=== PATIENT | male | born 1945 | race Hispanic/Latino ===

== ENCOUNTER → 2018-05-18 | Outpatient (CLI) | payer OTHER | END | disposition home or self-care (01) | LOC: RAH 13:55 | PROVIDERS: ATTEND Family Medicine | DX: R22.2 Localized swelling, mass and lump, trunk (principal) | CPT/HCPCS: 76882 ==

== ENCOUNTER → 2019-12-14 | Outpatient (CLI) | payer OTHER | END | disposition home or self-care (01) | LOC: OIH 10:36 | PROVIDERS: ATTEND Family Medicine | DX: M17.0 Bilateral primary osteoarthritis of knee (principal) | CPT/HCPCS: 73560 ==

== ENCOUNTER 2025-11-05 13:02 | Emergency (ER) | payer OTHER ==
[~2025-11-05] VITALS: Ht 170.2 cm; Wt 90.7 kg
[2025-11-05 13:25] LABS: IMMATURE GRANULOCYTE ABSOLUTE 0.02 K/uL (0-1); NUCLEATED RED BLOOD CELLS 0.0 % (0.0-0.19); PLATELET COUNT (AUTO) 179 K/uL (130-400); RED BLOOD CELL COUNT(AUTO) 4.89 MIL/uL (4.50-6.20); RED CELL DISTRIBUTION WIDTH 13.2 % (11.0-15.5); WHITE BLOOD COUNT (AUTO) 5.4 K/uL (4.8-10.8)
[2025-11-05 13:34] LABS: CREATININE 1.2 mg/dL (0.5-1.3); GLOMERULAR FILTR. RATE CALC 61.0 mL/min (>90); GLUCOSE,RANDOM 169.0 mg/dL (70-105); SODIUM SERUM 139.0 mmol/L (136-145); UREA NITROGEN, BLOOD 17.0 mg/dL (7-18)
[2025-11-05 14:19] LABS: APPEARANCE,URINE CLEAR (CLEAR); GLUCOSE, URINE (UA) NEGATIVE (NEGATIVE); LEUKOCYTE ESTERASE ,URINE NEGATIVE Leu/uL (NEGATIVE); NITRATE,URINE NEGATIVE (NEGATIVE); OCCULT BLOOD,URINE NEGATIVE (NEGATIVE)
[2025-11-05 14:27] LABS: ADD UA MICROSCOPIC YES
[2025-11-05 15:45] VITALS: BP 140/70; PULSE 69; RESP 19; TEMP 97.1; O2SAT 97
--- NOTE | 2025-11-05 16:08 | HMCIMG ---
EXAM: CT SCAN OF THE BRAIN WITHOUT CONTRAST CLINICAL HISTORY: Syncope. TECHNIQUE: Axial computed tomography images of the brain were obtained without administration of intravenous contrast. Sagittal and coronal reformatted images were generated for review. Radiation dose reduction was achieved using ALARA (as low as reasonably achievable) principles, including automatic exposure control, adjustment of mA and/or kV settings according to patient size and weight, and the use of iterative reconstruction techniques, as well as sagittal and coronal reconstructions when applicable. RADIATION DOSE: CTDIvol 49.30 mGy; DLP 960.40 mGycm. CONTRAST: No intravenous contrast administered. COMPARISON: None provided. FINDINGS: Brain parenchyma: Brain parenchyma demonstrates normal attenuation without evidence of acute intracranial hemorrhage, mass lesion, or territorial infarct. Bilateral basal ganglia calcifications are present. White matter: Focal hypodense areas in the bilateral periventricular and subcortical white matter most likely represent chronic small vessel ischemic changes. No confluent low-attenuation lesion or demyelinating pattern is identified. Ventricles and cisterns: Ventricular system is normal in size and configuration without hydrocephalus or midline shift. Prominence of the sulci, basal cisterns, and sylvian fissures is compatible with age-related cerebral volume loss. Extra-axial spaces: No extra-axial fluid collection is identified to suggest subdural or epidural hematoma. No abnormal extra-axial mass is seen. Posterior fossa: Brainstem and cerebellum are unremarkable in morphology and attenuation, aside from mild calcification along the cerebellar folia bilaterally. Sellar/parasellar region: Pituitary gland, parasellar structures, pineal region, and optic chiasm appear unremarkable. CP angles and IACs: Cerebellopontine angles are clear. Internal auditory canals are unremarkable. Skull and sinuses: Calvarium and skull base demonstrate normal bone density without acute fracture or destructive lesion. The visualized paranasal sinuses are clear. There is soft tissue density within the bilateral mastoid air cells and middle ear cavities with mild sclerosis of the mastoid air cells, compatible with chronic mastoid and middle ear inflammatory change. IMPRESSION: * No CT evidence of acute intracranial hemorrhage, mass lesion, or acute territorial infarct. No acute intracranial abnormality identified to account for syncope. * Chronic microvascular ischemic changes in the bilateral periventricular and subcortical white matter with age-appropriate cerebral volume loss. * Bilateral basal ganglia and mild cerebellar folial calcifications, most likely physiologic or age-related; correlation with metabolic or endocrine evaluation can be considered if there is a relevant clinical concern (e.g., calcium or parathyroid disorder). * Bilateral mastoid and middle ear opacification with mastoid air cell sclerosis, compatible with chronic otomastoiditis or chronic middle ear disease. Recommend correlation with otologic symptoms and physical examination, with consideration of ENT referral if the patient has hearing loss, recurrent otitis, or otorrhea. /[place]
--- NOTE | 2025-11-05 16:26 | ERN ---
ED Note History of Present Illness Stated Complaint: SYNCOPE Chief Complaint: Syncope Time Seen by MD: 13:03 Time Seen by Midlevel: 13:04 Dictation: 80-year-old male with a history of hypertension and diabetes coming in from [facility] for a syncopal episode. According to patient he was walking out and sat down to wait for his to pick him up, your member versus there next to him. Patient states he fell asleep. [facility] patient has a syncopal episode and was diaphoretic upon arrival. Patient at this time has not no complaints. Denies any headache, blurry vision, numbness, tingling, chest pain, chest discomfort or shortness a breath. Allergies: Coded Allergies: No Known Drug Allergies (Unverified Allergy, Unknown, 11/05/25) Past Medical History Past Medical History: Diabetes-Type II, High Cholesterol, Hypertension Surgical History: Other Surgical History Other: BACK SX Review of System Dictation Constitutional: Negative for fever,chills, and weight loss Eyes: Negative for injury, pain,redness, and discharge ENT: Negative for injury,pain or swelling Cardiovascular: Negative for chest pain, palpitations, and edema Respiratory: Negative for shortness of breath, cough, and wheezing, Abdomen/GI: Negative for abdominal pain, nausea, vomiting, diarrhea, and constipation Back: Negative for injury and pain : Negative for injury, bleeding and discharge MS/Extremity: Negative for injury and deformity Skin: Negative for rash, and discoloration Neuro: Negative for headache, weakness, numbness, tingling, and seizure Psych: Negative for suicide ideation, homicidal ideation, and hallucinations Review of Systems: was completed Initial Vital Sign VS Vital Signs Date Time Temp Pulse Resp B/P (MAP) Pulse Ox O2 Delivery O2 Flow Rate FiO2 11/05/25 13:36 97.9 70 16 105/64 95 Room Air 0 11/05/25 13:45 21 Physical Exam Dictation General: awake, alert, NAD Head/Face: Normocephalic, atraumatic Eyes: PERRL, EOMI, vision at baseline ENT: oral cavity clear, TMs clear, no signs of infection Neck: Trachea midline, supple, no nuchal rigidity Cardiovascular: RRR, normal S1/S2, No MRGs, no JVD Respiratory: CTAB, no respiratory distress, No rales or wheezes Abdomen: Soft, non-tender, non-distended, normal bowel sounds, no guarding or rebound. Skin: Warm, dry, normal turgor, no rash MS/Extremity: Pulses equal, no cyanosis, neurovascular intact, FROM Neuro: COAx4, GCS 15, strength 5/5, CN 2-12 intact, normal cerebellar exam, normal gait, Psych: Normal behavior, mood, and affect normal Results (Laboratory/Radiology) Laboratory/Radiology Laboratory Tests Test 11/05/25 13:20 11/05/25 14:05 White Blood Count 5.4 K/uL (4.8-10.8) Red Blood Count 4.89 MIL/uL (4.50-6.20) Hemoglobin 14.4 g/dL (14.0-18.0) Hematocrit 43.6 % (42-54) Mean Corpuscular Volume 89.2 fL (79-99) Mean Corpuscular Hemoglobin 29.4 pg (27.0-33.0) Mean Corpuscular Hemoglobin Concent 33.0 g/dL (32.0-36.0) Red Cell Distribution Width 13.2 % (11.0-15.5) Platelet Count 179 K/uL (130-400) Mean Platelet Volume 11.8 fL (7.5-10.5) H Immature Granulocyte % (Auto) 0.4 % (0-1) Neutrophils (%) (Auto) 64.4 % (40.0-77.0) Lymphocytes (%) (Auto) 26.3 % (21.0-51.0) Monocytes (%) (Auto) 6.5 % (3.0-13.0) Eosinophils (%) (Auto) 1.7 % (0.0-8.0) Basophils (%) (Auto) 0.7 % (0.0-5.0) Neutrophils # (Auto) 3.5 K/uL (1.8-7.7) Lymphocytes # (Auto) 1.4 K/uL (1.0-4.8) Monocytes # (Auto) 0.4 K/uL (0.1-1.0) Eosinophils # (Auto) 0.09 K/uL (0.00-0.70) Basophils # (Auto) 0.04 K/uL (0.00-0.20) Absolute Immature Granulocyte (auto 0.02 K/uL (0-1) Nucleated Red Blood Cells 0.0 % (0.0-0.19) Sodium Level 139 mmol/L (136-145) Potassium Level 4.7 mmol/L (3.5-5.1) Chloride Level 103 mmol/L (101-111) Carbon Dioxide Level 27 mmol/L (21-32) Blood Urea Nitrogen 17 mg/dL (7-18) Creatinine 1.2 mg/dL (0.5-1.3) Glomerular Filtration Rate Calc 61 mL/min (>90) Random Glucose 169 mg/dL (70-105) H Total Calcium 8.9 mg/dL (8.5-10.1) Troponin I High Sensitivity 88 ng/L (4-75) *H Urine Color YELLOW (YELLOW) Urine Appearance CLEAR (CLEAR) Urine pH 6.5 (5.0-8.0) Urine Specific [place] 1.017 (1.001-1.031) Urine Protein 10 mg/dL (NEGATIVE) H Urine Glucose (UA) NEGATIVE mg/dL (NEGATIVE) Urine Ketones NEGATIVE mg/dL (NEGATIVE) Urine Occult Blood NEGATIVE (NEGATIVE) Urine Nitrate NEGATIVE (NEGATIVE) Urine Bilirubin NEGATIVE mg/dL (NEGATIVE) Urine Urobilinogen 2.0 mg/dL (0.2-1.0) H Urine Leukocyte Esterase NEGATIVE Amado/uL Urine RBC 0-1 /HPF (0-1) Urine WBC 0-1 /HPF (0-1) Urine Bacteria None /HPF (None Seen) Urine Hyaline Casts 2-5 /LPF (0-1 /LPF) H Labs Reviewed?: Yes EKG Comment: EKGs did not at 1:30 p.m.. Sinus rhythm rate 68. No STEMI interpreted by ER MD CT Scan Comment: [address] [id number] IMAGING REPORT Signed PATIENT: ANASTACIA PHILLIP MR#: [id number] : 1945 SEX: M AGE: 80 LOCATION: [facility] ORDER 1305 STATUS: REG ER REPORT#: [id number] SERVICE 1309 REASON: syncope ORDERING PHYSICIAN: TORREZ,LEXIE CONSULTANT TEACHER PROCEDURE: HEAD WO - CT HEAD/BRAIN W/O CONTRAST EXAM: CT SCAN OF THE BRAIN WITHOUT CONTRAST CLINICAL HISTORY: Syncope. TECHNIQUE: Axial computed tomography images of the brain were obtained without administration of intravenous contrast. Sagittal and coronal reformatted images were generated for review. Radiation dose reduction was achieved using ALARA (as low as reasonably achievable) principles, including automatic exposure control, adjustment of mA and/or kV settings according to patient size and weight, and the use of iterative reconstruction techniques, as well as sagittal and coronal reconstructions when applicable. RADIATION DOSE: CTDIvol 49.30 mGy; DLP 960.40 mGy?cm. CONTRAST: No intravenous contrast administered. COMPARISON: None provided. FINDINGS: Brain parenchyma: Brain parenchyma demonstrates normal attenuation without evidence of acute intracranial hemorrhage, mass lesion, or territorial infarct. Bilateral basal ganglia calcifications are present. White matter: Focal hypodense areas in the bilateral periventricular and subcortical white matter most likely represent chronic small vessel ischemic changes. No confluent low-attenuation lesion or demyelinating pattern is identified. Ventricles and cisterns: Ventricular system is normal in size and configuration without hydrocephalus or midline shift. Prominence of the sulci, basal cisterns, and sylvian fissures is compatible with age-related cerebral volume loss. Extra-axial spaces: No extra-axial fluid collection is identified to suggest subdural or epidural hematoma. No abnormal extra-axial mass is seen. Posterior fossa: Brainstem and cerebellum are unremarkable in morphology and attenuation, aside from mild calcification along the cerebellar folia bilaterally. Sellar/parasellar region: Pituitary gland, parasellar structures, pineal region, and optic chiasm appear unremarkable. CP angles and IACs: Cerebellopontine angles are clear. Internal auditory canals are unremarkable. Skull and sinuses: Calvarium and skull base demonstrate normal bone density without acute fracture or destructive lesion. The visualized paranasal sinuses are clear. There is soft tissue density within the bilateral mastoid air cells and middle ear cavities with mild sclerosis of the mastoid air cells, compatible with chronic mastoid and middle ear inflammatory change. IMPRESSION: * No CT evidence of acute intracranial hemorrhage, mass lesion, or acute territorial infarct. No acute intracranial abnormality identified to account for syncope. * Chronic microvascular ischemic changes in the bilateral periventricular and subcortical white matter with age-appropriate cerebral volume loss. * Bilateral basal ganglia and mild cerebellar folial calcifications, most likely physiologic or age-related; correlation with metabolic or endocrine evaluation can be considered if there is a relevant clinical concern (e.g., calcium or parathyroid disorder). * Bilateral mastoid and middle ear opacification with mastoid air cell sclerosis, compatible with chronic otomastoiditis or chronic middle ear disease. Recommend correlation with otologic symptoms and physical examination, with consideration of ENT referral if the patient has hearing loss, recurrent otitis, or otorrhea. /[place] DICTATED BY: GERRY DODGE MD DATE: 11/05/251706 ELECTRONICALLY SIGNED BY: GERRY DODGE MD DATE: 11/05/251706 ED Course ED Course Orders Procedure Category Date Status Time Cbc With Differential LAB 11/05/25 Complete 13:04 Basic Metabolic Panel LAB 11/05/25 Complete 13:04 Troponin I High LAB 11/05/25 Complete Sensitivity 13:04 Urinalysis Profile LAB 11/05/25 Complete 13:04 12 Lead Ekg Tracing- EKG 11/05/25 Logged Technical 13:04 Ct Head/Brain W/O CT 11/05/25 Resulted Contrast 13:04 Troponin I High LAB 11/05/25 In Process Sensitivity 15:01 Orthostatic Vital CPOE 11/05/25 Transmitted Signs 15:01 Vital Signs Date Time Temp Pulse Resp B/P (MAP) Pulse Ox O2 Delivery O2 Flow Rate FiO2 11/05/25 13:45 97.2 77 18 119/62 95 Room Air* 0 21 11/05/25 13:36 97.9 70 16 105/64 95 Room Air 0 HEART Score Response (Comments) Value History: Low suspicion (0) 0 EKG: Normal 0 Age: > 65yrs (+2) 2 Risk Factors: 1-2 risk factors (+1) 1 Initial Troponin: 1-3x Normal Limit (+1) 1 Total 4 Medical Decision Making MDM MDM: 83-year-old male presents following a syncopal episode. Patient denies chest pain, shortness a breath, palpitations, headache, focal weakness or seizure-like activity. No reported trauma or head strike. Given patient's advanced age and syncope high-risk etiologies were considered including acute coronary syndrome, arrhythmia, intracranial hemorrhage and cerebrovascular event. Cardiac evaluation revealed an elevated troponin of88 concerning for possible myocardial injury, however patient denies any chest pain chest discomfort. EKGs demonstrates no acute ischemic changes, no ST-elevation depression or malignant arrhythmia at the time of the evaluation. Serum troponin isn't inpatient cardiac monitoring were recommended. CT of the head was obtained due to syncope and age and maturity no acute intracranial hemorrhage mass effect or acute ischemic changes. Imaging did not note bilateral mastoid air cell opacification which the patient reports his chronic a long-lasting dating back to his time in the ER if worse. Patient denies any ear pain, fever, hearing changes or neurological symptoms. This morning in his felt to be chronic and incidental not contributing to today's presentation. Neurological examination was nonfocal with the patient alert and oriented normal speech was drains sensation coordination and gait. Patient has no [facility] his name, his at bedside his did not breath. No evidence of acute stroke or TIA on exam. Given the elevated troponin in the setting of simply keep patient was strongly advised to be admitted for further evaluation including serial cardiac enzymes, telemetry monitoring, Cardiology consultation as this presentation caries significant risk for serious cardiac events including myocardial infarction, arrhythmias and sudden cardiac . Despite extensive discussion of the risks benefits and alternatives the patient declined admission and elected to leave against medical advice. Patient has demonstrated decision making capacity was able to verbalized understanding of the potential risks including worsening cardiac injury, arrhythmia, recurrent syncope, appointment disability or and continued to refuse admission. Patient was provided strict return precautions including chest pain, shortness a breath, recurrent syncope, dizziness, palpitations, weakness or any new or worsening symptoms. Patient states he is, "most comfortable at home". Differential diagnosis: SDH, TIA, stroke, ACS Rationale: Tests considered and ordered secondary to shared decision making include: Previous outside records reviewed: Old ER visits. Risk of complication and/or morbidity or mortality of patient management: None Medications-Per medication reconciliation Need for hospitalization: Patient does not meet criteria for hospitalization. Need for emergency major/minor surgery: No There are no social concerns with this patient. Prescription drug management Prescriptions will include symptomatic care Patient's prior external medical records from other ER visits were reviewed by me as indicated. Prior testing and results from previous visits were reviewed. Prior tests were taken into account with medical decision making and resource utilization, independent historian/historians were used to obtain complete medical history. I independently interpreted the test that were performed, results were reviewed by me and considered findings on radiology if ordered. Medical management and examination interpretation discussions were had by me with other qualified healthcare professionals as indicated for the patient's care. DX & DISP Disposition: AMA Departure Impression: Primary Impression: Syncope Additional Impression: Left against medical advice Condition: Stable Additional Instructions: Has been return to the hospital if you develop any slurred speech, dizziness, weakness to one side, chest pain, chest discomfort. [facility] Referrals: TAMIA MIRANDA MD (PCP) Time of Disposition: 16:25 I have reviewed the case, and I agree with, Diagnosis and Plan LEXIE TORREZ [facility] Nov 05, 2025 16:26
--- NOTE | 2025-11-05 18:45 | EKG ---
[facility] Test Date: 2025-11-05 Test Time: 13:30:58 Pat Name: ANASTACIA PHILLIP Department: ED Room: Gender: Patient Observation Assistant: [id number] : 1945 Requested By: LEXIE TORREZ Order Number: [id number] Reading MD: Dean Hernandez Measurements Intervals [place] Rate: 68 P: 28 CT: 192 QRS: 21 QRSD: 85 T: 26 QT: 393 QTc: 418 Interpretive Statements Sinus rhythm No previous ECG available for comparison Electronically Signed On 11-05-2025 20:13:26 [employer]E TRUCKER by Dean Hernandez Please click the below link to view image of tracing.
== END 2025-11-05 16:26 | disposition left against medical advice (07) ==
LOC: EDH 13:02
DX: R55 Syncope and collapse (principal); R61 Generalized hyperhidrosis; E11.9 Type 2 diabetes mellitus without complications; E78.00 Pure hypercholesterolemia, unspecified; I10 Essential (primary) hypertension; Z53.29 Procedure and treatment not carried out because of patient's decision for other reasons
CPT/HCPCS: 36415; 70450; 80048; 81001; 84484; 85025; 93005; 99284